=== PATIENT | male | born 1985 ===

== ENCOUNTER 2025-06-06 06:08 | Day surgery (SDC) | payer OTHER, SELFPAY ==
[2025-06-06 06:12] VITALS: BMI 53.0
[2025-06-06 06:14] VITALS: BP 170/91
[2025-06-06 06:23] VITALS: BMI 53.0
[2025-06-06] MEDS: TYLENOL 1000 MG PO (06:33)
[2025-06-06] MEDS: CELEBREX 200 MG PO (06:33)
[2025-06-06] MEDS: NORMOSOL-R/PLASMALYTE-A 1000 IV (06:53)
[2025-06-06] MEDS: DUONEB 3 ML INH (06:54)
--- NOTE | 2025-06-06 07:52 | PTCARENOTE ---
Patient rated high for DVT risk. Spoke with surgeon and no further orders for DVT prevention needed.
[2025-06-06 07:57] VITALS: BP 140/63
[2025-06-06 08:00] VITALS: BP 136/65
[2025-06-06] MEDS: ROXICODONE 5 MG PO (08:21)
[2025-06-06 08:24] VITALS: BP 132/68
== END 2025-06-06 08:40 | disposition home or self-care (01) ==
LOC: SDS 06:08
PROVIDERS: ATTENDING PHYSICIAN Orthopaedic Surgery Hand Surgery
DX: L03.011 Cellulitis of right finger (principal)
CPT/HCPCS: 10121; 10060; 87070; 87075; 87205; 94640